=== PATIENT | male | born 1980 | race Caucasian/White ===

== ENCOUNTER 2017-08-25 04:07 | Emergency (ER) | payer BC ==
[~2017-08-25] VITALS: Ht 179 cm; Wt 70.3 kg
[~2017-08-25 04:07] MED LIST: ANAPROX DS550 MG PO; AUGMENTIN 875 M1 TAB PO; BACTRIM DS 8001 TA1 PO; BENADRYL25 MG PO; CELEXA10 MG; CLARITIN10 MG PO; HYDROCODONE BIT1 T11 PO; MOTRIN800 MG PO; NKHM; ZITHROMAX Z PA250 MG PO
== END 2017-08-25 05:33 | disposition home or self-care (01) ==
LOC: ED 04:07
DX: S46.912A Strain of unspecified muscle, fascia and tendon at shoulder and upper arm level, left arm, initial encounter (principal); F17.200 Nicotine dependence, unspecified, uncomplicated; X58.XXXA Exposure to other specified factors, initial encounter; Y93.89 Activity, other specified; Y92.89 Other specified places as the place of occurrence of the external cause; Y99.8 Other external cause status

== ENCOUNTER 2017-08-30 13:22 | Emergency (ER) | payer BC ==
[~2017-08-30] VITALS: Ht 177.8 cm; Wt 70.3 kg
[2017-08-30] MEDS ORDERED: CYCLOBENZAPRINE5 M3 PO (15:56)
== END 2017-08-30 16:07 | disposition home or self-care (01) ==
LOC: ED 13:22
DX: M62.830 Muscle spasm of back (principal); M25.512 Pain in left shoulder; R20.0 Anesthesia of skin